=== PATIENT | female | born 1995 | race African-American/Black ===

== ENCOUNTER 2020-12-28 08:30 | Emergency (ER) | payer OTHER ==
[~2020-12-28] VITALS: Ht 160 cm; Wt 64.9 kg
[2020-12-28] MEDS ORDERED: NORFLEX100MG PO (13:14)
[2020-12-28] MEDS ORDERED: KETO10TA2 PO (13:14)
== END 2020-12-28 13:42 | disposition home or self-care (01) ==
LOC: ER 08:30
DX: R59.0 Localized enlarged lymph nodes (principal)

== ENCOUNTER 2022-04-08 11:04 | Emergency (ER) | payer OTHER ==
[~2022-04-08] VITALS: Ht 157.5 cm; Wt 66.7 kg
[~2022-04-08 11:04] MED LIST: KETO10TA2 PO; NORFLEX100MG PO
== END 2022-04-08 18:31 | disposition home or self-care (01) ==
LOC: ER 11:04
DX: K52.9 Noninfective gastroenteritis and colitis, unspecified (principal)

== ENCOUNTER 2022-08-22 10:10 | Emergency (ER) | payer OTHER ==
[~2022-08-22] VITALS: Ht 157.5 cm; Wt 63.5 kg
[2022-08-22] MEDS ORDERED: DICLOFENAC SODI75 MG PO (11:25)
== END 2022-08-22 11:32 | disposition home or self-care (01) ==
LOC: ER 10:10
DX: M25.531 Pain in right wrist (principal)